=== PATIENT | male | born 1945 | race Caucasian/White ===

== ENCOUNTER → 2021-05-05 14:13 | Outpatient (BNVA) | payer OTHER, SELFPAY | PROVIDERS: Family Provider Family Medicine; Referring Provider Emergency Medicine Emergency Medical Services; Visit Provider Specialist | DX: M25.551 Pain in right hip (principal) | CPT/HCPCS: 73502 ==

== ENCOUNTER → 2021-05-14 11:59 | Outpatient (BNVA) | payer OTHER, SELFPAY | PROVIDERS: Family Provider Family Medicine; Visit Provider Chiropractor | DX: Z01.812 Encounter for preprocedural laboratory examination (principal) | CPT/HCPCS: 87635 ==

== ENCOUNTER 2021-05-20 10:10 | Outpatient (CLI) | payer OTHER, SELFPAY ==
[2021-05-20 11:35] LABS: Free T4 Free Thyroxine 1.43 ng/dL (0.82-1.77); T3 Free 3.2 PG/ML (2.0-4.4); Thyroid Stimulating Hormone 0.27 uIU/mL (0.27-4.20)
--- NOTE | 2021-05-20 12:53 | PFTS_ITS ---
Date of Study:05/20/21 Date of Dictation: MECHANICS: Forced vital capacity (FVC) is reduced. Forced expiratory volume in one second (FEV1) is normal. FEV1/FVC is normal. FLOW VOLUME LOOP: Normal. LUNG VOLUMES: Not measured. DIFFUSING CAPACITY FOR CARBON MONOXIDE: Not measured. INTERPRETATION: The postbronchodilator spirometry is consistent with mild restriction. There is no significant postbronchodilator response. MTDD
== END 2021-05-20 10:11 | disposition home or self-care (01) ==
PROVIDERS: PCP Family Medicine; Visit Provider Chiropractor
DX: J40 Bronchitis, not specified as acute or chronic (principal); E04.9 Nontoxic goiter, unspecified
CPT/HCPCS: 84439; 84443; 84481; 94060; J7611

== ENCOUNTER 2021-05-25 11:26 | Outpatient (RCR) | payer OTHER, SELFPAY | END 2021-05-28 23:59 | disposition home or self-care (01) | LOC: SPT 11:26 | PROVIDERS: PCP Family Medicine; Referring Provider Specialist; Visit Provider Specialist | DX: M53.3 Sacrococcygeal disorders, not elsewhere classified (principal) | CPT/HCPCS: 97110; 97161 ==